=== PATIENT | male | born 1975 | race American Indian/Alaskan Native ===

== ENCOUNTER 2017-10-18 11:57 | Emergency (ER) | payer SELFPAY ==
[2017-10-18 12:48] LABS: Basophils % (Auto) 0.7 % (0.0-1.8); Eosinophils # (Auto) 0.1 K/mm3 (0.0-0.4); Eosinophils % (Auto) 1.1 % (0.0-4.3); Hematocrit 43.8 % (35.5-45.6); Hemoglobin 14.8 gm/dl (11.8-15.2); Lymphocytes # (Auto) 1.6 K/mm3 (1.2-5.4); Lymphocytes % (Auto) 30.9 % (13.4-35.0); Mean Corpuscular HGB Conc 34 % (32-34); Mean Corpuscular Hemoglobin 32 pg (28-32); Mean Corpuscular Volume 95 fl (84-94); Monocytes # (Auto) 0.3 K/mm3 (0.0-0.8); Platelet Count 223 K/mm3 (140-440); Red Blood Count 4.59 M/mm3 (3.65-5.03); Red Cell Distribution Width 15.1 % (13.2-15.2)
[2017-10-18] MEDS ORDERED: CATAPRES ONE (13:04)
--- NOTE | 2017-10-18 13:07 | Emergency Department Report ---
ED General Adult HPI - General Chief complaint: High BP Stated complaint: HYPERTENSIVE Time Seen by Provider: 10/18/17 12:46 Source: patient Mode of arrival: Ambulatory Limitations: No Limitations - History of Present Illness Initial comments: Patient is 42 years old -[place] male with history of hypertension on Norvasc 10 mg. Patient presented today with high blood pressure, he stated that his blood pressure at home was 170/110. Patient also stated that he been having trouble with his urine for the last month, he stated that he is having increased urinary frequency, urgency and unable to hold his urine until he get to the bathroom. Patient denied any fever nausea or vomiting. No headache chest pain or shortness of breath. No weakness numbness or tingling sensation. - Related Data Allergies Allergy/AdvReac Type Severity Reaction Status Date / Time No Known Allergies Allergy Unverified 10/18/17 12:07 ED Review of Systems ROS: Stated complaint: HYPERTENSIVE Other details as noted in HPI Comment: All other systems reviewed and negative Constitutional: denies: chills, fever Respiratory: denies: cough, orthopnea, shortness of breath, SOB with exertion Cardiovascular: denies: chest pain, palpitations Gastrointestinal: denies: abdominal pain, nausea, vomiting, diarrhea, constipation, hematemesis Genitourinary: urgency, frequency. denies: hematuria, discharge, testicular pain, testicular mass Skin: denies: rash Neurological: denies: headache, weakness, numbness, paresthesias ED Past Medical Hx - Past Medical History Additional medical history: pt had a stroke 2005 - Social History Smoking Status: Current Every Day Smoker Substance Use Type: Marijuana ED Physical Exam - General Limitations: No Limitations General appearance: alert, in no apparent distress - Head Head exam: Present: atraumatic, normocephalic, normal inspection - Eye Eye exam: Present: normal appearance - ENT ENT exam: Present: normal exam, normal orophraynx, mucous membranes moist - Neck Neck exam: Present: normal inspection, full ROM. Absent: tenderness, meningismus - Respiratory Respiratory exam: Present: normal lung sounds bilaterally. Absent: respiratory distress, wheezes, rales, rhonchi, stridor, chest wall tenderness, accessory muscle use, decreased breath sounds, prolonged expiratory - Cardiovascular Cardiovascular Exam: Present: regular rate, normal rhythm, normal heart sounds - GI/Abdominal GI/Abdominal exam: Present: soft, normal bowel sounds. Absent: distended, tenderness, guarding, rebound, rigid, diminished bowel sounds, organomegaly, mass, bruit, pulsatile mass, hernia - Extremities Exam Extremities exam: Present: normal inspection, full ROM, normal capillary refill - Back Exam Back exam: Present: normal inspection, full ROM. Absent: tenderness, CVA tenderness (R), CVA tenderness (L), muscle spasm, paraspinal tenderness, vertebral tenderness - Neurological Exam Neurological exam: Present: alert, oriented X3, CN II-XII intact, normal gait - Skin Skin exam: Present: warm, intact, normal color. Absent: cyanosis, diaphoretic, erythema ED Course Vital Signs 10/18/17 10/18/17 10/18/17 12:02 13:12 13:37 Temperature 98.0 F 98.7 F Pulse Rate 108 H 89 89 Respiratory 16 20 Rate Blood Pressure 168/112 169/110 Blood Pressure 169/110 [Left] O2 Sat by Pulse 96 99 Oximetry 10/18/17 14:37 Temperature Pulse Rate 74 Respiratory 16 Rate Blood Pressure Blood Pressure 140/87 [Left] O2 Sat by Pulse 97 Oximetry - Reevaluation(s) Reevaluation #1: 10/18/17 14:47 Patient blood pressure now is 140/87. Patient denied any headache numbness or tingling sensation. No chest pain. No weakness. No bowel or bladder incontinence. ED Medical Decision Making - Lab Data Result diagrams: 10/18/17 12:33 10/18/17 12:33 Critical care attestation.: If time is entered above; I have spent that time in minutes in the direct care of this critically ill patient, excluding procedure time. ED Disposition Clinical Impression: Hypertension, Benign prostatic hyperplasia Disposition: DC-01 TO HOME OR SELFCARE Is pt being admited?: No Condition: Stable Instructions: Hypertension (ED), Benign Prostatic Hypertrophy (ED)
[2017-10-18 13:09] LABS: Alanine Aminotransferase 15 units/L (7-56); Albumin 4.5 g/dL (3.9-5); BUN/Creatinine Ratio 15; Blood Urea Nitrogen 17 mg/dL (9-20); Calcium 9.2 mg/dL (8.4-10.2); Hemolysis Index 20
[2017-10-18 13:34] LABS: Bilirubin,Urine NEG (Negative); Blood,Urine NEG (Negative); Color,Urine Yellow (Yellow); Mucus,Urine FEW /HPF; Protein,Urine <15 mg/dL mg/dL (Negative)
[2017-10-18] MEDS: CATAPRES PO ONE (13:37)
[2017-10-18 13:43] LABS: Amphetamine Screen,Urine PRESUMPTIVE NEGATIVE; Benzodiazepines Screen,Urine PRESUMPTIVE NEGATIVE; Cocaine Screen,Urine PRESUMPTIVE NEGATIVE; Methadone Screen,Urine PRESUMPTIVE NEGATIVE; Opiate Screen,Urine PRESUMPTIVE NEGATIVE
[2017-10-18 14:08] LABS: Cannabinoid Screen,Urine PRESUMPTIVE POSITIVE
[2017-10-18 14:39] VITALS: BP 140/87
== END 2017-10-18 15:07 | disposition home or self-care (01) ==
LOC: ED 11:57
DX: N40.0 Benign prostatic hyperplasia without lower urinary tract symptoms (principal); I10 Essential (primary) hypertension; F17.200 Nicotine dependence, unspecified, uncomplicated; F12.10 Cannabis abuse, uncomplicated
CPT/HCPCS: 36415; 80053; 80307; 81001; 85025; 85730; 99283

== ENCOUNTER 2018-12-08 08:29 | Emergency (ER) | payer SELFPAY ==
[2018-12-08 08:45] VITALS: BP 131/89
[2018-12-08 09:04] LABS: Basophils % (Auto) 0.5 % (0.0-1.8); Eosinophils % (Auto) 0.4 % (0.0-4.3); Hematocrit 41.9 % (35.5-45.6); Hemoglobin 14.6 gm/dl (11.8-15.2); Lymphocytes # (Auto) 2.3 K/mm3 (1.2-5.4); Mean Corpuscular HGB Conc 35 % (32-34); Mean Corpuscular Volume 95 fl (84-94); Monocytes # (Auto) 0.4 K/mm3 (0.0-0.8); Monocytes % (Auto) 6.3 % (0.0-7.3); Platelet Count 212 K/mm3 (140-440); Red Cell Distribution Width 14.1 % (13.2-15.2)
[2018-12-08] MEDS ORDERED: ALUM-MAG HYDROX-SIMETH 200-200-20MG/5ML PO ONE (09:19)
[2018-12-08] MEDS ORDERED: LIDOCAINE VISCOUS 2% PO ONE (09:19)
[2018-12-08] MEDS ORDERED: PEPCID PO ONE (09:19)
[2018-12-08 09:20] LABS: Alanine Aminotransferase 21 units/L (7-56); Albumin 4.2 g/dL (3.9-5); BUN/Creatinine Ratio 12; Blood Urea Nitrogen 14 mg/dL (9-20); Calcium 9.6 mg/dL (8.4-10.2); Hemolysis Index 14
--- NOTE | 2018-12-08 09:20 | Emergency Department Report ---
ED Abdominal Pain HPI - General Chief Complaint: Abdominal Pain Stated Complaint: ABD PAIN FOR 1WK/VOMIT Time Seen by Provider: 12/08/18 09:18 Source: patient Mode of arrival: Ambulatory Limitations: No Limitations - History of Present Illness Initial Comments: Patient is a 43-year-old male comes to the ER complaining of epigastric pain. He has some nausea but no vomiting no diarrhea. He reports decreased by mouth intake. He does have occasional alcohol. MD Complaint: abdominal pain -: Gradual, days(s) Location: epigastric Severity: mild Quality: cramping Consistency: intermittent Improves With: nothing Worsens With: nothing Associated Symptoms: denies other symptoms - Related Data Previous Rx's Medication Instructions Recorded Last Taken Type Tamsulosin [Flomax] 0.4 mg PO QDAY 30 Days cap 10/18/17 Unknown Rx amLODIPine [Norvasc] 10 mg PO DAILY #30 tab 10/18/17 Unknown Rx Pantoprazole [Protonix] 40 mg PO QDAY #30 tablet 12/08/18 Unknown Rx Allergies Allergy/AdvReac Type Severity Reaction Status Date / Time No Known Allergies Allergy Unverified 10/18/17 12:07 ED Review of Systems ROS: Stated complaint: ABD PAIN FOR 1WK/VOMIT Other details as noted in HPI Comment: All other systems reviewed and negative ED Past Medical Hx - Past Medical History Previous Medical History?: Yes Hx Hypertension: Yes Additional medical history: pt had a stroke 2006 - Surgical History Past Surgical History?: No - Family History Family history: no significant - Social History Smoking Status: Current Every Day Smoker Substance Use Type: Marijuana - Medications Home Medications: Home Medications Medication Instructions Recorded Confirmed Last Taken Type Tamsulosin [Flomax] 0.4 mg PO QDAY 30 Days cap 10/18/17 Unknown Rx amLODIPine [Norvasc] 10 mg PO DAILY #30 tab 10/18/17 Unknown Rx Pantoprazole [Protonix] 40 mg PO QDAY #30 tablet 12/08/18 Unknown Rx ED Physical Exam - General Limitations: No Limitations General appearance: alert - Head Head exam: Present: atraumatic, normocephalic - Eye Eye exam: Present: normal appearance, PERRL - ENT ENT exam: Present: mucous membranes moist - Neck Neck exam: Present: normal inspection - Respiratory Respiratory exam: Present: normal lung sounds bilaterally - Cardiovascular Cardiovascular Exam: Present: regular rate - GI/Abdominal GI/Abdominal exam: Present: soft, normal bowel sounds. Absent: distended, tenderness, guarding, rebound, rigid, diminished bowel sounds, hyperactive bowel sounds, hypoactive bowel sounds, organomegaly, mass, bruit, pulsatile mass - Extremities Exam Extremities exam: Present: normal inspection, full ROM - Back Exam Back exam: Present: normal inspection, full ROM - Neurological Exam Neurological exam: Present: alert, oriented X3 - Psychiatric Psychiatric exam: Present: normal affect, normal mood ED Course Vital Signs 12/08/18 08:43 Temperature 98.7 F Pulse Rate 88 Respiratory 18 Rate Blood Pressure 131/89 O2 Sat by Pulse 98 Oximetry ED Medical Decision Making - Lab Data Result diagrams: 12/08/18 08:53 12/08/18 08:53 - Medical Decision Making Lab Results 12/08/18 12/08/18 12/08/18 Range/Units 08:53 08:53 08:53 WBC 6.5 (4.5-11.0) K/mm3 RBC 4.40 (3.65-5.03) M/mm3 Hgb 14.6 (11.8-15.2) gm/dl Hct 41.9 (35.5-45.6) % MCV 95 H (84-94) fl MCH 33 H (28-32) pg MCHC 35 H (32-34) % RDW 14.1 (13.2-15.2) % Plt Count 212 (140-440) K/mm3 Lymph % (Auto) 35.0 (13.4-35.0) % [place] % (Auto) 6.3 (0.0-7.3) % Eos % (Auto) 0.4 (0.0-4.3) % Baso % (Auto) 0.5 (0.0-1.8) % Lymph # 2.3 (1.2-5.4) K/mm3 [place] # 0.4 (0.0-0.8) K/mm3 Eos # 0.0 (0.0-0.4) K/mm3 Baso # 0.0 (0.0-0.1) K/mm3 Seg Neutrophils % 57.8 (40.0-70.0) % Seg Neutrophils # 3.8 (1.8-7.7) K/mm3 Sodium 137 (137-145) mmol/L Potassium 3.5 L (3.6-5.0) mmol/L Chloride 99.4 (98-107) mmol/L Carbon Dioxide 28 (22-30) mmol/L Anion Gap 13 mmol/L BUN 14 (9-20) mg/dL Creatinine 1.2 (0.8-1.5) mg/dL Estimated GFR > 60 ml/min BUN/Creatinine Ratio 12 % Glucose 103 H (75-100) mg/dL Calcium 9.6 (8.4-10.2) mg/dL Total Bilirubin 0.90 (0.1-1.2) mg/dL AST 16 (5-40) units/L ALT 21 (7-56) units/L Alkaline Phosphatase 71 (35-129) units/L Total Protein 7.0 (6.3-8.2) g/dL Albumin 4.2 (3.9-5) g/dL Albumin/Globulin Ratio 1.5 % Lipase 356 H (13-60) units/L Urine Color (Yellow) Urine Turbidity (Clear) Urine pH (5.0-7.0) Ur Specific Sunol (1.003-1.030) Urine Protein (Negative) mg/dL Urine Glucose (UA) (Negative) mg/dL Urine Ketones (Negative) mg/dL Urine Blood (Negative) Urine Nitrite (Negative) Urine Bilirubin (Negative) Urine Urobilinogen (<2.0) mg/dL Ur Leukocyte Esterase (Negative) Urine WBC (Auto) (0.0-6.0) /HPF Urine RBC (Auto) (0.0-6.0) /HPF U Epithel Cells (Auto) (0-13.0) /HPF Urine Mucus /HPF 12/08/18 Range/Units 08:58 WBC (4.5-11.0) K/mm3 RBC (3.65-5.03) M/mm3 Hgb (11.8-15.2) gm/dl Hct (35.5-45.6) % MCV (84-94) fl MCH (28-32) pg MCHC (32-34) % RDW (13.2-15.2) % Plt Count (140-440) K/mm3 Lymph % (Auto) (13.4-35.0) % [place] % (Auto) (0.0-7.3) % Eos % (Auto) (0.0-4.3) % Baso % (Auto) (0.0-1.8) % Lymph # (1.2-5.4) K/mm3 [place] # (0.0-0.8) K/mm3 Eos # (0.0-0.4) K/mm3 Baso # (0.0-0.1) K/mm3 Seg Neutrophils % (40.0-70.0) % Seg Neutrophils # (1.8-7.7) K/mm3 Sodium (137-145) mmol/L Potassium (3.6-5.0) mmol/L Chloride (98-107) mmol/L Carbon Dioxide (22-30) mmol/L Anion Gap mmol/L BUN (9-20) mg/dL Creatinine (0.8-1.5) mg/dL Estimated GFR ml/min BUN/Creatinine Ratio % Glucose (75-100) mg/dL Calcium (8.4-10.2) mg/dL Total Bilirubin (0.1-1.2) mg/dL AST (5-40) units/L ALT (7-56) units/L Alkaline Phosphatase (35-129) units/L Total Protein (6.3-8.2) g/dL Albumin (3.9-5) g/dL Albumin/Globulin Ratio % Lipase (13-60) units/L Urine Color Yellow (Yellow) Urine Turbidity Clear (Clear) Urine pH 5.0 (5.0-7.0) Ur Specific Sunol 1.024 (1.003-1.030) Urine Protein <15 mg/dl (Negative) mg/dL Urine Glucose (UA) Neg (Negative) mg/dL Urine Ketones Neg (Negative) mg/dL Urine Blood Sm (Negative) Urine Nitrite Neg (Negative) Urine Bilirubin Neg (Negative) Urine Urobilinogen 2.0 (<2.0) mg/dL Ur Leukocyte Esterase Neg (Negative) Urine WBC (Auto) 1.0 (0.0-6.0) /HPF Urine RBC (Auto) 7.0 (0.0-6.0) /HPF U Epithel Cells (Auto) < 1.0 (0-13.0) /HPF Urine Mucus Few /HPF Vital Signs 12/08/18 08:43 Temperature 98.7 F Pulse Rate 88 Respiratory 18 Rate Blood Pressure 131/89 O2 Sat by Pulse 98 Oximetry GI COCKTAIL IN ER RELIEVED PAIN DISCUSSED DEC ETOH WITH PT VSS DC HOME WITH PCP AND GI FOLLOW UP ON DC TAKING PO, AMBULATORY AND NONTOXIC Critical care attestation.: If time is entered above; I have spent that time in minutes in the direct care of this critically ill patient, excluding procedure time. ED Disposition Clinical Impression: Epigastric abdominal pain Disposition: DC-01 TO HOME OR SELFCARE Is pt being admited?: No Does the pt Need Aspirin: No Condition: Stable Instructions: Gastroesophageal Reflux Disease (ED) Additional Instructions: med as ordered today diet as tolerated activity as tolerated hydrate well with water AVOID ALCOHOL Prescriptions: Pantoprazole [Protonix] 40 mg PO QDAY #30 tablet [facility] - 3-5 Days BISI MAGDALENO MD [Staff Physician] - 3-5 Days ISAURA DIAS MD [Staff Physician] - 3-5 Days RUFINA HERNANDEZ MD [Staff Physician] - 3-5 Days Time of Disposition: 10:31
[2018-12-08 09:23] LABS: Bilirubin,Urine NEG (Negative); Blood,Urine SM (Negative); Color,Urine Yellow (Yellow); Mucus,Urine FEW /HPF; Protein,Urine <15 mg/dL mg/dL (Negative)
[2018-12-08] MEDS ORDERED: K-DUR PO ONE (09:38)
== END 2018-12-08 10:50 | disposition home or self-care (01) ==
LOC: ED 08:29
DX: R10.13 Epigastric pain (principal); F17.200 Nicotine dependence, unspecified, uncomplicated; F12.10 Cannabis abuse, uncomplicated; I10 Essential (primary) hypertension; Z79.899 Other long term (current) drug therapy
CPT/HCPCS: 36415; 80053; 81001; 83690; 85025; 99283

== ENCOUNTER 2019-02-01 05:43 | Emergency (ER) | payer OTHER ==
[2019-02-01 05:50] VITALS: BP 156/99
--- NOTE | 2019-02-01 06:25 | XRay Report ---
PROCEDURE: XR SHOULDER 2+V RT TECHNIQUE: 3 views of the right shoulder were submitted. HISTORY: right shoulder pain COMPARISONS: None FINDINGS: The glenohumeral and AC joints appear normal. The subacromial space appears normal. The soft tissues appear normal. IMPRESSION: Within normal limits.. This document is electronically signed by Wm Collado MD., February 01 2019 06:23:01 AM ET
[2019-02-01] MEDS ORDERED: TORADOL IM ONE (07:43)
--- NOTE | 2019-02-01 07:43 | Emergency Department Report ---
ED Back Pain/Injury HPI - General Chief Complaint: Shoulder Injury Stated Complaint: RT ARM PAIN Time Seen by Provider: 02/01/19 07:11 Source: patient Limitations: No Limitations - History of Present Illness Initial Comments: PT is a 43-year-old male who comes to the ER complaining of right shoulder pain. He denies any injury to the shoulder. He has full range of motion. He is neurovascularly intact. NO FALL. NO TRAUMA. PAIN IS ACHING. WORSE WITH MOVEMENT. BETTER AT REST. PT HAS TAKEN NOTHING TO MAKE PAIN BETTER. -: days(s) Similar Symptoms Previously: No Place: home Radiation: none Associated Symptoms: denies other symptoms - Related Data Previous Rx's Medication Instructions Recorded Last Taken Type Tamsulosin [Flomax] 0.4 mg PO QDAY 30 Days cap 10/18/17 Unknown Rx amLODIPine [Norvasc] 10 mg PO DAILY #30 tab 10/18/17 Unknown Rx Pantoprazole [Protonix] 40 mg PO QDAY #30 tablet 12/08/18 Unknown Rx Ibuprofen [Motrin] 800 mg PO Q8HR PRN #25 tablet 02/01/19 Unknown Rx predniSONE [Deltasone] 20 mg PO DAILY #5 tablet 02/01/19 Unknown Rx Acetaminophen [Non-Aspirin Extra 500 mg PO Q6HR PRN #30 tablet 02/03/19 Unknown Rx Strength] Diclofenac 1% [Diclofenac 1% 2 gm TP QID PRN #1 gel..gram. 02/03/19 Unknown Rx topical gel] Allergies Allergy/AdvReac Type Severity Reaction Status Date / Time No Known Allergies Allergy Verified 02/01/19 05:49 ED Review of Systems ROS: Stated complaint: RT ARM PAIN Other details as noted in HPI Comment: All other systems reviewed and negative ED Past Medical Hx - Past Medical History Medical history: hypertension pt had a stroke 2005 Family history: no significant family history ED Back Pain Physical Exam - Exam General: Vital signs noted. No distress. Alert and acting appropriately. Back/Abdomen: No Abdominal Tenderness, No Perithoracic Tenderness, No Perilumbar Tenderness, No Sacroiliac Tenderness, No Flank Tenderness, No Straight Leg Raise Pain Neuro: Yes Normal Sensation, Yes Normal DTR's, Yes Normal Gait, No Motor Weakness ED Course Vital Signs 02/01/19 05:48 Temperature 97.7 F Pulse Rate 64 Respiratory 18 Rate Blood Pressure 156/99 O2 Sat by Pulse 99 Oximetry Ed Back Pain Tests - Tests Tests: Normal X Rays ED Medical Decision Making - Radiology Data Radiology results: report reviewed, image reviewed - Medical Decision Making XRAY NEG FULL ROM NEUROVASC INTACT MEDICATED FOR PAIN DC HOME WITH DC PLAN OF CARE Vital Signs 02/01/19 05:48 Temperature 97.7 F Pulse Rate 64 Respiratory 18 Rate Blood Pressure 156/99 O2 Sat by Pulse 99 Oximetry - Differential Diagnosis ro dislocation/ fracture Critical care attestation.: If time is entered above; I have spent that time in minutes in the direct care of this critically ill patient, excluding procedure time. ED Disposition Clinical Impression: Shoulder pain Qualifiers: Chronicity: unspecified Laterality: right Qualified Code(s): M25.511 - Pain in right shoulder Disposition: DC-01 TO HOME OR SELFCARE Is pt being admited?: No Does the pt Need Aspirin: No Condition: Stable Instructions: Osteoarthritis (ED) Additional Instructions: DIET TOLERATED MEDS ORDERED TODAY IN ER FOLLOW INSTRUCTIONS ON THE BOTTLE FOLLOW UP PCP WITHIN 48 HOURS TO ENSURE YOU ARE GETTING BETTER ACTIVITY TOLERATED MOTRIN OR TYLENOL FOR PAIN OR FEVER RETURN TO THE ER FOR WORSENING SYMPTOMS NOT RELIEVED BY YOUR MEDICATIONS. Prescriptions: predniSONE [Deltasone] 20 mg PO DAILY #5 tablet Ibuprofen [Motrin] 800 mg PO Q8HR PRN #25 tablet PRN Reason: Pain , Severe (7-10) Referrals: ANNA GAN MD [Staff Physician] - 3-5 Days Time of Disposition: 08:09
== END 2019-02-01 08:23 | disposition home or self-care (01) ==
LOC: ED 05:43
DX: M25.511 Pain in right shoulder (principal)
CPT/HCPCS: 73030; 96372; 99283; J1885

== ENCOUNTER 2019-02-03 17:01 | Emergency (ER) | payer SELFPAY ==
--- NOTE | 2019-02-03 17:21 | Emergency Department Report ---
Blank Doc - Documentation Documentation: 43 y o male presents to ed cc of right shoulder pain x friday pt was here friday and evaluated states pain is not resolved xr completed
[2019-02-03] MEDS ORDERED: TORADOL IM ONE (18:21)
--- NOTE | 2019-02-03 18:26 | Emergency Department Report ---
ED General Adult HPI - General Chief complaint: Shoulder Injury Stated complaint: CHEST PAIN/CHILLS Time Seen by Provider: 02/03/19 17:16 Source: patient, RN notes reviewed, old records reviewed Mode of arrival: Ambulatory Limitations: No Limitations - History of Present Illness Initial comments: This is a 43-year-old gentleman. The patient is right-hand dominant. Patient reports a history of stroke in 2005. The patient presents to the emergency room today with complaints of right-sided shoulder pain, burning pain and discomfort that goes down his right upper extremity, "chills", which he further explains are goose bumps in his bilateral upper extremities, painful range of motion in the shoulder capsule, and right-sided trapezius pain. He denies midline neck pain. He reports his paracervical pain. He denies severe headache. He denies trauma. He denies weakness. The pain is sharp, burning, chilling, moved to the anterior chest wall, and to the right posterior thorax. The patient denies fevers.he denies rigors. He denies exertional chest pain. He denies exertional shortness of breath. He denies vomiting. He denies lower abdominal pain. He denies lower extremity weakness, numbness. He denies bladder or bowel retention, incontinence. He denies saddle anesthesia. -: Gradual, days(s) Location: right, upper extremity Radiation: other Quality: burning Consistency: intermittent Improves with: rest Worsens with: movement - Related Data Previous Rx's Medication Instructions Recorded Last Taken Type Tamsulosin [Flomax] 0.4 mg PO QDAY 30 Days cap 10/18/17 Unknown Rx amLODIPine [Norvasc] 10 mg PO DAILY #30 tab 10/18/17 Unknown Rx Pantoprazole [Protonix] 40 mg PO QDAY #30 tablet 12/08/18 Unknown Rx Ibuprofen [Motrin] 800 mg PO Q8HR PRN #25 tablet 02/01/19 Unknown Rx predniSONE [Deltasone] 20 mg PO DAILY #5 tablet 02/01/19 Unknown Rx Acetaminophen [Non-Aspirin Extra 500 mg PO Q6HR PRN #30 tablet 02/03/19 Unknown Rx Strength] Diclofenac 1% [Diclofenac 1% 2 gm TP QID PRN #1 gel..gram. 02/03/19 Unknown Rx topical gel] Allergies Allergy/AdvReac Type Severity Reaction Status Date / Time No Known Allergies Allergy Verified 02/01/19 05:49 ED Review of Systems ROS: Stated complaint: CHEST PAIN/CHILLS Other details as noted in HPI Constitutional: denies: fever Eyes: denies: eye discharge ENT: denies: epistaxis Respiratory: denies: cough Cardiovascular: denies: syncope Gastrointestinal: denies: abdominal pain Genitourinary: denies: dysuria Musculoskeletal: arthralgia, myalgia Skin: denies: lesions Neurological: numbness, paresthesias Psychiatric: anxiety ED Past Medical Hx - Past Medical History Previous Medical History?: Yes Hx Hypertension: Yes Additional medical history: pt had a stroke 2005 - Surgical History Past Surgical History?: No - Social History Smoking Status: Current Every Day Smoker Substance Use Type: None - Medications Home Medications: Home Medications Medication Instructions Recorded Confirmed Last Taken Type Tamsulosin [Flomax] 0.4 mg PO QDAY 30 Days cap 10/18/17 Unknown Rx amLODIPine [Norvasc] 10 mg PO DAILY #30 tab 10/18/17 Unknown Rx Pantoprazole [Protonix] 40 mg PO QDAY #30 tablet 12/08/18 Unknown Rx Ibuprofen [Motrin] 800 mg PO Q8HR PRN #25 tablet 02/01/19 Unknown Rx predniSONE [Deltasone] 20 mg PO DAILY #5 tablet 02/01/19 Unknown Rx Acetaminophen [Non-Aspirin Extra 500 mg PO Q6HR PRN #30 tablet 02/03/19 Unknown Rx Strength] Diclofenac 1% [Diclofenac 1% 2 gm TP QID PRN #1 gel..gram. 02/03/19 Unknown Rx topical gel] ED Physical Exam - General Limitations: No Limitations, Other (upon entering the patient's examination room, he is noted to be sleeping comfortably, on his left side, and in no acute distress. When then wake the patient up to interview him, he appears to become very anxious.) General appearance: alert - Head Head exam: Present: atraumatic, normocephalic - Eye Eye exam: Present: normal appearance, EOMI. Absent: nystagmus - ENT ENT exam: Present: normal exam, normal orophraynx, mucous membranes moist, normal external ear exam - Neck Neck exam: Present: normal inspection, tenderness (there is paracervical/right- sided trapezius tenderness. There is no midline cervical spine tenderness.), full ROM - Respiratory Respiratory exam: Present: normal lung sounds bilaterally. Absent: respiratory distress - Cardiovascular Cardiovascular Exam: Present: regular rate, normal rhythm, normal heart sounds. Absent: bradycardia, tachycardia, irregular rhythm, systolic murmur, diastolic murmur, rubs, gallop - GI/Abdominal GI/Abdominal exam: Present: soft. Absent: distended, tenderness, guarding, rebound, rigid, pulsatile mass - Rectal Rectal exam: Present: deferred - Extremities Exam Extremities exam: Present: normal inspection, full ROM, tenderness (there is reproducible right sided shoulder pain. There is no redness, pus or streaking. The patient has full passive range of motion on the right and left shoulder. Sensation is intact to light touch in the bilateral upper, lower extremities. Sensation intact to proprioception in the bilateral upper, lower extremities, painful/pain sensation intact in the bilateral upper, lower extremities. When the patient's right shoulder is passively range and this appears less lateral direction, the patient actively flexes the shoulder, and resists range of motion. He has 5 out of 5 strength bilateral upper, lower extremities.), other (2+ pulses noted in the bilateral upper, lower extremities. Compartments soft. No long bony tenderness. The pelvis is stable.) - Back Exam Back exam: Present: normal inspection, full ROM, paraspinal tenderness. Absent: tenderness, CVA tenderness (R), CVA tenderness (L), vertebral tenderness - Neurological Exam Neurological exam: Present: alert, oriented X3, normal gait, reflexes normal (2+ reflexes noted in the bilateral biceps, triceps, brachioradialis is a patient. There are downgoing plantar reflexes bilaterally.), other (Extraocular movements intact. Tongue midline. No facial droop. Facial sensation intact to light touch in the V1, V2, V3 distribution bilaterally. 5 and 5 strength in 4 extremities.. Sensation is intact to light touch in 4 extremities.). Absent: motor sensory deficit - Psychiatric Psychiatric exam: Present: anxious - Skin Skin exam: Present: warm, dry, intact, normal color. Absent: rash ED Course Vital Signs 02/03/19 17:16 Temperature 97.9 F Pulse Rate 76 Respiratory 18 Rate Blood Pressure 157/90 O2 Sat by Pulse 98 Oximetry - Reevaluation(s) Reevaluation #1: 02/03/19 18:27 Differential diagnosis, including not limited to: Cervical radiculopathy, peripheral neuropathy, adhesive capsulitis, DJD Assessment and plan: 43-year-old gentleman who complains of burning chilling pain in his right paracervical region, right trapezius, right shoulder. He has appropriate strength, sensation to multiple modalities,reflexes appeared to be appropriate, and the patient is able to impressively resist passive range of motion in the right shoulder, where he forcibly stops abduction, extension on his initial examination. He has no midline spinal tenderness, there is no pus or streaking, there are no fevers, and his endorsement of chills is further clarified as goose bumps his bilateral upper extremities. Upon initial evaluation is noted to be sleeping in the stretcher, and in no acute distress. He is not tachycardic, he is not hypoxic His exam is not consistent with an infected joint, and acute cord compression, or compressive radiculopathy resulting in disability. He is already taking steroids, and NSAIDs. We'll give him a dose of ketorolac here in the emergency room. His x-ray from the other days reviewed and appears to be unremarkable. The patient will need to follow up with outpatient primary care, orthopedics, or neurology for his presumed cervical radiculopathy. ED Medical Decision Making - Lab Data Vital Signs 02/03/19 17:16 Temperature 97.9 F Pulse Rate 76 Respiratory 18 Rate Blood Pressure 157/90 O2 Sat by Pulse 98 Oximetry - EKG Data -: EKG Interpreted by [facility] EKG shows normal: sinus rhythm Rate: normal - EKG Data 02/03/19 18:42 This is a normal sinus rhythm. QTC is within normal limits. There is early repolarization/high left ventricular voltage. This EKG is not consistent with an ST elevation myocardial infarction. Rate 64 bpm. - Radiology Data Radiology results: report reviewed, image reviewed X-ray of the right shoulder from 02/01/2019 negative for acute disease. Critical care attestation.: If time is entered above; I have spent that time in minutes in the direct care of this critically ill patient, excluding procedure time. ED Disposition Clinical Impression: Shoulder pain Qualifiers: Chronicity: unspecified Laterality: right Qualified Code(s): M25.511 - Pain in right shoulder Disposition: DC-01 TO HOME OR SELFCARE Is pt being admited?: No Does the pt Need Aspirin: No Condition: Stable Instructions: Cervical Radiculopathy (ED) Additional Instructions: Rest, avoid heavy lifting, and avoid strenuous physical activities. Continue current outpatient prescribed medications. Take the pain medications as needed/directed. Follow-up with the primary care doctor, orthopedics or postal delivery officer for further evaluation and management within the next 2 weeks. Symptoms will likely take a few weeks to a few months to improve. Return to the emergency room right away with new pain, worsened pain, migration of pain, inability to ranged or move the right upper extremity, fever greater than 101, or new, worsening or different symptoms are not present on initial emergency room evaluation. Patient may apply the Voltaren gel to the affected joint, up to 8 g per joint per day, do not apply to broken inflamed or infected skin. Avoid exposure to extreme heat. Prescriptions: Diclofenac 1% [Diclofenac 1% topical gel] 2 gm TP QID PRN #1 gel..gram. PRN Reason: Pain , Severe (7-10) Acetaminophen [Non-Aspirin Extra Strength] 500 mg PO Q6HR PRN #30 tablet PRN Reason: Pain , Severe (7-10) Referrals: ANNA GAN MD [Staff Physician] - 3-5 Days [facility] [Provider Group] - 3-5 Days
[2019-02-03 19:03] VITALS: BP 139/95
== END 2019-02-03 20:03 | disposition home or self-care (01) ==
LOC: ED 17:01
DX: M25.511 Pain in right shoulder (principal); I10 Essential (primary) hypertension; F17.200 Nicotine dependence, unspecified, uncomplicated
CPT/HCPCS: 82962; 93005; 93010; J1885; 96372

== ENCOUNTER 2019-06-30 10:13 | Emergency (ER) | payer SELFPAY ==
[2019-06-30 11:12] LABS: Basophils % (Auto) 0.6 % (0.0-1.8); Eosinophils % (Auto) 0.1 % (0.0-4.3); Hematocrit 47.5 % (35.5-45.6); Hemoglobin 16.1 gm/dl (11.8-15.2); Lymphocytes # (Auto) 2.3 K/mm3 (1.2-5.4); Lymphocytes % (Auto) 30.8 % (13.4-35.0); Mean Corpuscular HGB Conc 34 % (32-34); Mean Corpuscular Volume 97 fl (84-94); Monocytes # (Auto) 0.5 K/mm3 (0.0-0.8); Monocytes % (Auto) 6.1 % (0.0-7.3); Platelet Count 199 K/mm3 (140-440); Red Blood Count 4.92 M/mm3 (3.65-5.03); Red Cell Distribution Width 13.7 % (13.2-15.2)
[2019-06-30 11:27] LABS: Alanine Aminotransferase 13 units/L (7-56); Albumin 4.2 g/dL (3.9-5); BUN/Creatinine Ratio 10; Blood Urea Nitrogen 10 mg/dL (9-20); Calcium 9.3 mg/dL (8.4-10.2); Hemolysis Index 5
[2019-06-30 11:50] LABS: Bilirubin,Urine NEG (Negative); Blood,Urine SM (Negative); Color,Urine Yellow (Yellow); Mucus,Urine 2+ /HPF; Urobilinogen,Urine < 2.0 mg/dL (<2.0)
[2019-06-30] MEDS ORDERED: ONDANSETRON 4 MG ODT TAB PO ONE (12:33)
[2019-06-30] MEDS ORDERED: ACETAMINOPHEN 325 MG TAB PO ONE (12:34)
[2019-06-30] MEDS ORDERED: FAMOTIDINE 20 MG TAB PO ONE (12:34)
--- NOTE | 2019-06-30 12:38 | Emergency Department Report ---
ED N/V/D HPI - General Chief complaint: Nausea/Vomiting/Diarrhea Stated complaint: VOMITING Time Seen by Provider: 06/30/19 12:10 Source: patient Mode of arrival: Ambulatory Limitations: No Limitations - History of Present Illness Initial comments: 43-year-old male with a past medical history of hypertension presents here today complaining of nausea and vomiting and diffuse abdominal pain for the past 2.5 days. Patient states that every time he tries to eat or drink, he vomits. He denies any diarrhea. He states that his last bowel movement was about 2 days ago. He denies any hard stools and straining with that bowel movement. He denies any hematemesis, or bloody stools. He reports associated chills and diaphoresis. He denies any ill contacts, recent abx use, or recent travel out of the country. Denies any abdominal surgery. MD complaint: nausea, vomiting, abdominal pain -: days(s) (2.5) Description of Vomiting: watery Associated Abdominal Pain: Yes Location: diffuse Radiation: none Severity: moderate Quality: cramping Consistency: intermittent Improves with: none Worsens with: none Associated Symptoms: diaphoresis, fever/chills, nausea/vomiting. denies: myalgias, chest pain, cough, headaches, loss of appetite, malaise, rash, dysu [place], shortness of breath, syncope, weakness - Related Data Previous Rx's Medication Instructions Recorded Last Taken Type Tamsulosin [Flomax] 0.4 mg PO QDAY 30 Days cap 10/18/17 Unknown Rx amLODIPine [Norvasc] 10 mg PO DAILY #30 tab 10/18/17 Unknown Rx Pantoprazole [Protonix] 40 mg PO QDAY #30 tablet 12/08/18 Unknown Rx Ibuprofen [Motrin] 800 mg PO Q8HR PRN #25 tablet 02/01/19 Unknown Rx predniSONE [Deltasone] 20 mg PO DAILY #5 tablet 02/01/19 Unknown Rx Acetaminophen [Non-Aspirin Extra 500 mg PO Q6HR PRN #30 tablet 02/03/19 Unknown Rx Strength] Diclofenac 1% [Diclofenac 1% 2 gm TP QID PRN #1 gel..gram. 02/03/19 Unknown Rx topical gel] Famotidine [Pepcid] 40 mg PO QHS #30 tablet 06/30/19 Unknown Rx Ondansetron [Zofran Odt] 4 mg PO Q8HR PRN #15 tab.rapdis 06/30/19 Unknown Rx Allergies Allergy/AdvReac Type Severity Reaction Status Date / Time No Known Allergies Allergy Verified 02/01/19 05:49 ED Review of Systems ROS: Stated complaint: VOMITING Other details as noted in HPI Comment: All other systems reviewed and negative Constitutional: chills. denies: fever Respiratory: denies: cough, shortness of breath, wheezing Cardiovascular: denies: chest pain, palpitations Gastrointestinal: abdominal pain, nausea, vomiting, constipation. denies: diarrhea, hematemesis, melena, hematochezia Genitourinary: denies: urgency, dysuria Musculoskeletal: denies: back pain, arthralgia, myalgia Neurological: denies: headache, weakness, paresthesias ED Past Medical Hx - Past Medical History Previous Medical History?: Yes Hx Hypertension: Yes Hx CVA: Yes Additional medical history: pt had a stroke 2006 - Surgical History Past Surgical History?: No - Social History Smoking Status: Current Every Day Smoker Substance Use Type: None - Medications Home Medications: Home Medications Medication Instructions Recorded Confirmed Last Taken Type Tamsulosin [Flomax] 0.4 mg PO QDAY 30 Days cap 10/18/17 Unknown Rx amLODIPine [Norvasc] 10 mg PO DAILY #30 tab 10/18/17 Unknown Rx Pantoprazole [Protonix] 40 mg PO QDAY #30 tablet 12/08/18 Unknown Rx Ibuprofen [Motrin] 800 mg PO Q8HR PRN #25 tablet 02/01/19 Unknown Rx predniSONE [Deltasone] 20 mg PO DAILY #5 tablet 02/01/19 Unknown Rx Acetaminophen [Non-Aspirin Extra 500 mg PO Q6HR PRN #30 tablet 02/03/19 Unknown Rx Strength] Diclofenac 1% [Diclofenac 1% 2 gm TP QID PRN #1 gel..gram. 02/03/19 Unknown Rx topical gel] Famotidine [Pepcid] 40 mg PO QHS #30 tablet 06/30/19 Unknown Rx Ondansetron [Zofran Odt] 4 mg PO Q8HR PRN #15 tab.rapdis 06/30/19 Unknown Rx ED Physical Exam - General Limitations: No Limitations General appearance: alert, in no apparent distress - Head Head exam: Present: atraumatic, normocephalic - Eye Eye exam: Present: normal appearance, PERRL, EOMI. Absent: scleral icterus Pupils: Present: normal accommodation - ENT ENT exam: Present: normal exam, normal orophraynx, mucous membranes moist - Respiratory Respiratory exam: Present: normal lung sounds bilaterally - Cardiovascular Cardiovascular Exam: Present: regular rate - GI/Abdominal GI/Abdominal exam: Present: soft. Absent: distended, tenderness, guarding, rebound, rigid - Neurological Exam Neurological exam: Present: alert, altered, oriented X3, CN II-XII intact, normal gait - Skin Skin exam: Present: intact ED Course - Reevaluation(s) Reevaluation #1: Patient tolerated PO fluid challenge without any vomiting. Abdomen Soft non tender, no distension or rigidity. He is not toxic or ill appearing. VS stable. Discussed results, suspected dx and treatment plan with patient. Recommend follow up with PCP but return to ED if worse. 06/30/19 13:33 06/30/19 13:48 ED Medical Decision Making - Lab Data Result diagrams: 06/30/19 10:41 06/30/19 10:41 Critical care attestation.: If time is entered above; I have spent that time in minutes in the direct care of this critically ill patient, excluding procedure time. ED Disposition Clinical Impression: Vomiting, Gastroenteritis Disposition: DC-01 TO HOME OR SELFCARE Is pt being admited?: No Does the pt Need Aspirin: No Condition: Stable Instructions: Gastroenteritis (ED) Additional Instructions: Take medications as prescribed. Recommend bland diet for the next 12-24hrs. Follow up with PCP but if worse return to ED. Prescriptions: Famotidine [Pepcid] 40 mg PO QHS #30 tablet Ondansetron [Zofran Odt] 4 mg PO Q8HR PRN #15 tab.rapdis PRN Reason: Nausea And Vomiting Referrals: PRIMARY CARE, [Primary Care Provider] - 3-5 Days [facility] [Provider Group] - 3-5 Days Time of Disposition: 13:39
== END 2019-06-30 14:52 | disposition home or self-care (01) ==
LOC: ED 10:13
DX: K52.9 Noninfective gastroenteritis and colitis, unspecified (principal); I10 Essential (primary) hypertension; F17.200 Nicotine dependence, unspecified, uncomplicated; Z86.73 Personal history of transient ischemic attack (TIA), and cerebral infarction without residual deficits; Z79.899 Other long term (current) drug therapy
CPT/HCPCS: 36415; 80053; 81001; 83690; 85025; Q0162